=== PATIENT | male | born 2000 | race Hispanic/Latino ===

== ENCOUNTER 2024-07-01 15:20 | Emergency (ER) | payer MEDICAID, SELFPAY ==
[2024-07-01 15:33] VITALS: BP 131/81
[2024-07-01 16:39] VITALS: BP 130/83; BMI 22.5
--- NOTE | 2024-07-01 17:10 | ED.SKININJ ---
HPI-Injury
General
Chief Complaint: Skin Problem
Source: patient
Exam Limitations: none
Time Seen by Provider: 07/01/24 16:53
Nursing documentation reviewed up to this point in time: agreed with
History of Present Illness-Injury
Is this injury a work related problem?: No
Is pt an associate of [facility]/[place]?: No
Initial Injury comments:
Patient to ED with complaint of swelling to right upper lip. States 2 days ago he noticed a pimple at site. Now with worsening pain and swelling. Denies fever/chills. Brought self to ED for eval.
Past History
Past History
ED Past Medical History: None
ED Past Surgical History: None
Review of Systems
Review of Systems
Allergies reviewed?: Yes
All Other Systems: ROS reviewed and negative except as documented in HPI and ROS
Constitutional: Reports no symptoms
EENT: Reports no symptoms
Respiratory: Reports no symptoms
Cardiac: Reports no symptoms
ABD/GI: Reports no symptoms
Musculoskeletal: Reports no symptoms
Skin: Reports other (redeness and swelling to right uypper lip)
Neurological: Reports no symptoms
Psychiatric: Reports no symptoms
Skin Exam
Abscess
Right Upper Lip:
Description of abscess: firm
Surrounding skin:: inflammed at abscess site
Phy Exam
General Physical Exam
General Presentation: well appearing and no apparent distress
General age: appears stated age
General Skin: warm and dry
General Habitus: normal
Musculoskeletal Exam
Musculoskeletal Exam: full ROM and neuro vasc intact
Skin Exam
Skin Exam: normal color, warm/dry and no rash
Psychiatric Exam
Psychiatric Exam: normal mood/affect
Course
Orders/Labs/Results
Orders:
Orders
07/01/24 17:06
Amoxicillin 875 mg/Clav 125 mg [Augmentin 875 mg/125 mg] 1 tablet PO NOW STA
07/01/24 17:14
Wound Culture [Wound/Abscess/Other Culture] Urgent
ELSIE Source: Face
Specimen Description: Right
Date Specimen was Collected: 07/01/24
Time Specimen was Collected: 17:12
Vital Signs
Initial and Last Documented VS:
Initial Vital Signs
Temp Pulse Resp BP Pulse Ox
98.5 F 77 16 131/81 100
07/01/24 15:33 07/01/24 15:33 07/01/24 15:33 07/01/24 15:33 07/01/24 15:33
Last Documented Vital Signs
Temp Pulse Resp BP Pulse Ox
98.7 F 66 12 130/83 100
07/01/24 16:39 07/01/24 16:39 07/01/24 16:39 07/01/24 16:39 07/01/24 16:39
*Critical Care Note
Total Time (30-74mins, 75-104mins- exclusive of procedures): Not Applicable
Update Note
Update Note:
Site of abscess infiltrated with lidocaine 1%. Small needle inserted and small amt of pus was aspirated. CUlture sent to lab. He was placed on augmentin in ED. Afebrile. He is discharged home and will follow upw ith PCP. Given instructions on
s/s to return to ED and he is agreeable to plan.
ED Attending Note
-
Portions of this chart may have been created with voice recognition software.� Occasional wrong word or��sound alike� substitutions may have occurred due to the inherent limitations of voice recognition software.
Discharge Plan
Departure
Patient Disposition: Home (Routine Discharge)
Date of Disposition: 07/01/24
Time of Disposition: 17:07
Patient with high blood pressure during this ER visit?: No
Condition: Good
Covid-19: Not Applicable
Discharge Problem:
Cellulitis of face
Instructions: Cellulitis (Skin Infection), Adult (DC)
Prescriptions:
New
amoxicillin-pot clavulanate 875-125 mg tablet
1 tab PO BID Qty: 20 0RF
Referrals:
ADEGITE,ENITAN [Other]
Activity Restrictions/Additional Instructions:
Return to the emergency department for fever/chills, increasng pain/redness/swelling to your lip, or for any further concerns.
Interventions
Interventions:
*Risk Screen - Suicide Last Done: 07/01/24 16:35
*General Assessment Last Done: 07/01/24 16:35
*Neglect/Abuse Screening Last Done: 07/01/24 16:35
*ED- Fall Risk Assessment Last Done: 07/01/24 16:35
*Nursing Disposition Last Done: 07/01/24 17:13
ED-Skin Assessment Last Done: 07/01/24 16:35
Discharge Date and Time
Discharge Date/Time: 07/01/24 17:17
Print Language: EQUATORIAL GUINEAN
[2024-07-01] MEDS: AUGMENTIN 875 MG/125 MG 1 TABLET PO (17:16)
== END 2024-07-01 17:17 | disposition home or self-care (01) ==
LOC: EMR 15:20
PROVIDERS: EMERGENCY PHYSICIAN Emergency Medicine
DX: L03.211 Cellulitis of face (principal); J45.909 Unspecified asthma, uncomplicated; Z91.012 Allergy to eggs
CPT/HCPCS: 99283; 10060; 87070; 87147; 87205